=== PATIENT | female | born 1990 | race American Indian/Alaskan Native ===

== ENCOUNTER 2019-03-09 17:58 | Emergency (ER) | payer MEDICAID ==
[2019-03-09 20:07] VITALS: BP 147/94
[2019-03-09 21:03] LABS: Hematocrit 44.5 % (30.3-42.9); Hemoglobin 14.5 gm/dl (10.1-14.3); Mean Corpuscular HGB Conc 33 % (30-34); Mean Corpuscular Volume 84 fl (79-97); Platelet Count 280 K/mm3 (140-440); Red Blood Count 5.28 M/mm3 (3.65-5.03); Red Cell Distribution Width 15.1 % (13.2-15.2)
[2019-03-09 21:22] LABS: BUN/Creatinine Ratio 15; Blood Urea Nitrogen 9 mg/dL (7-17); Calcium 9.9 mg/dL (8.4-10.2); Hemolysis Index 3
[2019-03-09 22:12] LABS: Bacteria,Urine 1+ /HPF (Negative); Bilirubin,Urine NEG (Negative); Blood,Urine NEG (Negative); Color,Urine Yellow (Yellow); Mucus,Urine FEW /HPF; Protein,Urine <15 mg/dL mg/dL (Negative); Urobilinogen,Urine < 2.0 mg/dL (<2.0)
[2019-03-09 22:14] LABS: HCG Qualitative,Urine Negative (Negative)
--- NOTE | 2019-03-09 23:04 | XRay Report ---
PROCEDURE: XR CHEST ROUTINE 2V TECHNIQUE: PA and lateral chest radiographs were obtained. HISTORY: cough, chest pain COMPARISONS: None. FINDINGS: Heart: Normal. Mediastinum/Vessels: Normal. Lungs/Pleural space: Normal. Bony thorax: No acute osseous abnormality. IMPRESSION: Normal examination. This document is electronically signed by Ran Schofield MD., March 09 2019 11:02:59 PM ET
[2019-03-09] MEDS ORDERED: IBUPROFEN PO ONE (23:41)
[2019-03-09] MEDS ORDERED: ATROVENT IH ONE (23:46)
[2019-03-09] MEDS ORDERED: DECADRON IM ONE (23:46)
[2019-03-09] MEDS ORDERED: PROVENTIL IH ONE (23:46)
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
== END 2019-03-10 00:12 | disposition home or self-care (01) ==
LOC: ED 17:58
DX: S39.012A Strain of muscle, fascia and tendon of lower back, initial encounter (principal); J45.901 Unspecified asthma with (acute) exacerbation; F12.10 Cannabis abuse, uncomplicated; V49.49XA Driver injured in collision with other motor vehicles in traffic accident, initial encounter; Y93.89 Activity, other specified; Y92.410 Unspecified street and highway as the place of occurrence of the external cause; Y99.8 Other external cause status
CPT/HCPCS: 36415; 71046; 80048; 81001; 81025; 84484; 85027; 93005; 93010; 94644; 96372; 99284; J1100

== ENCOUNTER 2020-02-16 13:47 | Emergency (ER) | payer MEDICAID ==
--- NOTE | 2020-02-16 14:06 | Event Note ---
ED Screening Note ED Screening Note: [employer] CONCERNED FOR COVID HX ASTHMA RASPY BILATERAL LUNGS- XRAY RO PNA NO FEVER OR CHILLS POS SOB AMBULATORY SAT NORMAL MILD HR INC HTN DENIES C/E/D This initial assessment/diagnostic orders/clinical plan/treatment(s) is/are subject to change based on patients health status, clinical progression and re- assessment by fellow clinical providers in the ED. Further treatment and workup at subsequent clinical providers discretion. Patient/guardian urged not to elope from the ED as their condition may be serious if not clinically assessed and managed. Initial orders include: XRAY RAPID FLU ACC EVAL
[2020-02-16 14:14] VITALS: BP 152/112
--- NOTE | 2020-02-16 14:30 | XRay Report ---
CHEST 2 VIEWS INDICATION / CLINICAL INFORMATION: Shortness of breath. COMPARISON: Chest x-ray on 03/09/2019. FINDINGS: SUPPORT DEVICES: None. HEART / MEDIASTINUM: No significant abnormality. LUNGS / PLEURA: No significant pulmonary or pleural abnormality. No pneumothorax. ADDITIONAL FINDINGS: No significant additional findings. IMPRESSION: 1. No acute findings. Signer Name: Jalil Pedersen MD Signed: 02/16/2020 2:25 PM Workstation Name: [id number]
[2020-02-16] MEDS ORDERED: IPRATROPIUM 0.02% NEBU 2.5 ML IH ONE (14:36)
[2020-02-16] MEDS ORDERED: DEXAMETHASONE 4 MG TAB PO ONE (14:36)
[2020-02-16] MEDS ORDERED: ALBUTEROL 2.5 MG/3 ML NEBU IH ONE ×2 (14:36→15:53)
--- NOTE | 2020-02-16 14:41 | Emergency Department Report ---
ED Asthma HPI - General Chief Complaint: Dyspnea/Respdistress Stated Complaint: SOB Time Seen by Provider: 02/16/20 14:02 Source: patient Mode of arrival: Ambulatory Limitations: No Limitations - History of Present Illness Initial Comments: 30-year-old -[place] female with a past medical history of asthma presents to the emergency room for shortness of breath for the last 2 days. Patient reports she has had some cough. Patient denies any fever or chills no recent travels no nausea no vomiting no sore throat. Patient denies any past medical history except asthma. Patient reports that she has no prescription or inhalers. Last menstrual period was 01/26/2020. MD Complaint: "asthma attack" Onset/Timin -: days(s) - Related Data Previous Rx's Medication Instructions Recorded Last Taken Type ALBUTEROL Inhaler(NF) [VENTOLIN 1 puff IH Q4-6H PRN #1 inha 10/05/18 Unknown Rx Inhaler(NF)] Prednisone [predniSONE 10 mg 10 mg PO .TAPER #1 tab.ds.pk 10/05/18 Unknown Rx (6-Day Pack, 21 Tabs)] ALBUTEROL Inhaler(NF) [VENTOLIN 2 puff IH Q4-6H PRN #1 inha 03/10/19 Unknown Rx Inhaler(NF)] Cyclobenzaprine [Flexeril] 10 mg PO QHS PRN #10 tablet 03/10/19 Unknown Rx Ibuprofen [Motrin] 600 mg PO Q8H PRN #20 tablet 03/10/19 Unknown Rx Prednisone [predniSONE 10 mg 10 mg PO .TAPER #1 tab.ds.pk 03/10/19 Unknown Rx (6-Day Pack, 21 Tabs)] Ibuprofen [Motrin 800 MG tab] 800 mg PO Q8HR PRN #20 tablet 03/27/19 Unknown Rx Albuterol Sulfate [Proventil Hfa] 6.7 gm IH QID PRN #1 hfa.aer.ad 02/16/20 Unknown Rx Prednisone [predniSONE 5 mg (6-Day 5 mg PO .TAPER #1 tab.ds.pk 02/16/20 Unknown Rx Pack, 21 Tabs)] Allergies Allergy/AdvReac Type Severity Reaction Status Date / Time No Known Allergies Allergy Verified 10/05/18 22:22 ED Review of Systems ROS: Stated complaint: SOB Other details as noted in HPI ED Past Medical Hx - Past Medical History Hx Asthma: Yes - Social History Smoking Status: Never Smoker Substance Use Type: None - Medications Home Medications: Home Medications Medication Instructions Recorded Confirmed Last Taken Type ALBUTEROL Inhaler(NF) [VENTOLIN 1 puff IH Q4-6H PRN #1 inha 10/05/18 Unknown Rx Inhaler(NF)] Prednisone [predniSONE 10 mg 10 mg PO .TAPER #1 tab.ds.pk 10/05/18 Unknown Rx (6-Day Pack, 21 Tabs)] ALBUTEROL Inhaler(NF) [VENTOLIN 2 puff IH Q4-6H PRN #1 inha 03/10/19 Unknown Rx Inhaler(NF)] Cyclobenzaprine [Flexeril] 10 mg PO QHS PRN #10 tablet 03/10/19 Unknown Rx Ibuprofen [Motrin] 600 mg PO Q8H PRN #20 tablet 03/10/19 Unknown Rx Prednisone [predniSONE 10 mg 10 mg PO .TAPER #1 tab.ds.pk 03/10/19 Unknown Rx (6-Day Pack, 21 Tabs)] Ibuprofen [Motrin 800 MG tab] 800 mg PO Q8HR PRN #20 tablet 03/27/19 Unknown Rx Albuterol Sulfate [Proventil Hfa] 6.7 gm IH QID PRN #1 hfa.aer.ad 02/16/20 Unknown Rx Prednisone [predniSONE 5 mg (6-Day 5 mg PO .TAPER #1 tab.ds.pk 02/16/20 Unknown Rx Pack, 21 Tabs)] ED Physical Exam - General Limitations: No Limitations General appearance: alert, in no apparent distress - Head Head exam: Present: atraumatic, normocephalic - Eye Eye exam: Present: normal appearance - ENT ENT exam: Present: mucous membranes moist - Neck Neck exam: Present: normal inspection, full ROM - Respiratory Respiratory exam: Present: rhonchi, prolonged expiratory - Cardiovascular Cardiovascular Exam: Present: bradycardia (mild) - GI/Abdominal GI/Abdominal exam: Present: soft, normal bowel sounds - Back Exam Back exam: Present: normal inspection - Neurological Exam Neurological exam: Present: alert, oriented X3, normal gait - Psychiatric Psychiatric exam: Present: normal affect, normal mood - Skin Skin exam: Present: warm, dry, intact, normal color. Absent: rash ED Course Vital Signs 02/16/20 13:55 Temperature 98.5 F Pulse Rate 102 H Respiratory 18 Rate Blood Pressure 152/112 O2 Sat by Pulse 95 Oximetry - Reevaluation(s) Reevaluation #1: 02/16/20 15:54 Reassessment of patient she reports she feels somewhat better but still can hear herself wheeze. Patient does have a expiratory wheeze. Will authorize 5 mL's albuterol neb treatment. ED Medical Decision Making - Medical Decision Making 30-year-old -[place] female with a past medical history of asthma presents to the emergency room for shortness of breath for the last 2 days. Patient reports she has had some cough. Patient denies any fever or chills no recent travels no nausea no vomiting no sore throat. Patient denies any past medical history except asthma. Patient reports that she has no prescription or inhalers. Last menstrual period was 01/26/2020. Chest x-ray is negative for any acute findings. Patient will be given albuterol 5 mg Atrovent 0.5 and dexamethasone p.o. 4 mg. Patient will be discharged home with an albuterol inhaler and a prednisone pack and to follow-up with a community provider. Critical care attestation.: If time is entered above; I have spent that time in minutes in the direct care of this critically ill patient, excluding procedure time. ED Disposition Clinical Impression: Asthma Disposition: DC-01 TO HOME OR SELFCARE Is pt being admited?: No Does the pt Need Aspirin: No Condition: Stable Instructions: Asthma (ED), Reactive Airways Disease (ED) Additional Instructions: Please complete prednisone package as prescribed. Use your inhaler as needed for shortness of breath and cough. Follow-up with a community provider if you continue to have asthma related complaints. Prescriptions: Prednisone [predniSONE 5 mg (6-Day Pack, 21 Tabs)] 5 mg PO .TAPER #1 tab.ds.pk Albuterol Sulfate [Proventil Hfa] 6.7 gm IH QID PRN #1 hfa.aer.ad PRN Reason: Shortness Of Breath Referrals: PRIMARY MD ESTHER [Primary Care Provider] - 3-5 Days JOSÉ MANUEL EL MD [Staff Physician] - 3-5 Days [facility] [Provider Group] - 3-5 Days Forms: Work/School Release Form(ED)
== END 2020-02-16 16:45 | disposition home or self-care (01) ==
LOC: ED 13:47
DX: J45.909 Unspecified asthma, uncomplicated (principal)
CPT/HCPCS: 71046; 99283; J8540

== ENCOUNTER 2020-02-29 00:12 | Emergency (ER) | payer MEDICAID ==
[2020-02-29 00:21] VITALS: BP 150/102
[2020-02-29 01:30] LABS: Basophils % (Auto) 0.5 % (0.0-1.8); Eosinophils # (Auto) 0.9 K/mm3 (0.0-0.4); Hemoglobin 15.3 gm/dl (10.1-14.3); Lymphocytes # (Auto) 2.1 K/mm3 (1.2-5.4); Lymphocytes % (Auto) 26.4 % (13.4-35.0); Mean Corpuscular HGB Conc 33 % (30-34); Mean Corpuscular Volume 85 fl (79-97); Monocytes # (Auto) 0.6 K/mm3 (0.0-0.8); Monocytes % (Auto) 6.9 % (0.0-7.3); Platelet Count 330 K/mm3 (140-440); Red Blood Count 5.53 M/mm3 (3.65-5.03); Red Cell Distribution Width 13.4 % (13.2-15.2)
[2020-02-29 01:42] LABS: BUN/Creatinine Ratio 12; Blood Urea Nitrogen 7 mg/dL (7-17); Calcium 9.3 mg/dL (8.4-10.2); Hemolysis Index 8
[2020-02-29] MEDS ORDERED: ACETAMINOPHEN 500 MG TAB PO ONE (01:58)
[2020-02-29] MEDS ORDERED: methylPREDNISolone Sod Succinate 125 MG/2 ML INJ IM ONE (01:58)
[2020-02-29] MEDS ORDERED: IPRATROPIUM/ALBUTEROL SULFATE 3 ML AMPUL.NEB IH ONE (01:58)
[2020-02-29] MEDS ORDERED: ALBUTEROL 2.5 MG/3 ML NEBU IH ONE (05:22)
--- NOTE | 2020-02-29 06:03 | Emergency Department Report ---
ED Shortness of Breath HPI - General Chief Complaint: Dyspnea/Respdistress Stated Complaint: DIFFICULTY IN BREATHING Source: patient Mode of arrival: Ambulatory Limitations: No Limitations - History of Present Illness Initial Comments: Patient is a 30-year-old -Romanian female with a history of asthma and who is not on any medications at home presents to the ED with complaint of acute onset persistent nasal and sinus congestion, frontal sinus pressure, headache, sore throat, pleuritic chest pain, persistent dry cough and wheezing and shortness of breath for the last 1 week, worse in the last 2 days especially in the last 6 hours. Patient states that the pleuritic pain gets worse at night when she lays down to sleep with persistent dry cough. Patient denies dizz iness, fever, chills, abdominal pain, nausea, vomiting, sore throat, diarrhea, dysuria, urinary frequency and urgency, syncope, change in vision or fall, heavy lifting and traumatic injury. MD Complaint: shortness of breath, cough, chest pain, pain with inspiration, "asthma attack" -: Sudden, week(s) (1) Severity: severe Pain Scale: 7 Quality: aching, sharp, other (Pleuritic) Consistency: intermittent Improves With: nothing Worsens With: movement, coughing, inspiration Known History Of: asthma Context: recent URI, anxiety Associated Symptoms: denies other symptoms, chest pain (Pleuritic), pain with inspiration, cough Treatments Prior to Arrival: none - Related Data Home Oxygen Therapy: No Previous Rx's Medication Instructions Recorded Last Taken Type ALBUTEROL Inhaler(NF) [VENTOLIN 1 puff IH Q4-6H PRN #1 inha 10/05/18 Unknown Rx Inhaler(NF)] Prednisone [predniSONE 10 mg 10 mg PO .TAPER #1 tab.ds.pk 10/05/18 Unknown Rx (6-Day Pack, 21 Tabs)] ALBUTEROL Inhaler(NF) [VENTOLIN 2 puff IH Q4-6H PRN #1 inha 03/10/19 Unknown Rx Inhaler(NF)] Cyclobenzaprine [Flexeril] 10 mg PO QHS PRN #10 tablet 03/10/19 Unknown Rx Prednisone [predniSONE 10 mg 10 mg PO .TAPER #1 tab.ds.pk 03/10/19 Unknown Rx (6-Day Pack, 21 Tabs)] Ibuprofen [Motrin 800 MG tab] 800 mg PO Q8HR PRN #20 tablet 03/27/19 Unknown Rx Prednisone [predniSONE 5 mg (6-Day 5 mg PO .TAPER #1 tab.ds.pk 02/16/20 Unknown Rx Pack, 21 Tabs)] Albuterol Sulfate [Proventil Hfa] 1 - 2 puff IH Q6H PRN #1 hfa.aer.ad 02/29/20 Unknown Rx Benzonatate [Tessalon Perles] 100 mg PO Q8HR #30 capsule 02/29/20 Unknown Rx Cetirizine HCl [Zyrtec 10mg tab] 10 mg PO DAILY #30 tablet 02/29/20 Unknown Rx Doxycycline Hyclate 100 mg PO Q12H #20 tablet.dr 02/29/20 Unknown Rx Ibuprofen [Motrin 600 MG tab] 600 mg PO Q8H PRN #20 tablet 02/29/20 Unknown Rx Prednisone [predniSONE 10 mg 10 mg PO .TAPER #21 tab.ds.pk 02/29/20 Unknown Rx (6-Day Pack, 21 Tabs)] Allergies Allergy/AdvReac Type Severity Reaction Status Date / Time No Known Allergies Allergy Verified 10/05/18 22:22 ED Review of Systems ROS: Stated complaint: DIFFICULTY IN BREATHING Other details as noted in HPI Constitutional: denies: chills, fever Eyes: denies: eye pain, eye discharge, vision change ENT: congestion. denies: ear pain, throat pain Respiratory: cough, shortness of breath, wheezing Cardiovascular: chest pain (Pleuritic). denies: palpitations Endocrine: no symptoms reported Gastrointestinal: denies: abdominal pain, nausea, vomiting, diarrhea Genitourinary: denies: urgency, dysuria, discharge Musculoskeletal: denies: back pain, joint swelling, arthralgia Skin: denies: rash, lesions Neurological: headache. denies: weakness, paresthesias Psychiatric: denies: anxiety, depression Hematological/Lymphatic: denies: easy bleeding, easy bruising ED Past Medical Hx - Past Medical History Previous Medical History?: Yes Hx Asthma: Yes - Surgical History Past Surgical History?: No - Social History Smoking Status: Former Smoker Substance Use Type: Alcohol - Medications Home Medications: Home Medications Medication Instructions Recorded Confirmed Last Taken Type ALBUTEROL Inhaler(NF) [VENTOLIN 1 puff IH Q4-6H PRN #1 inha 10/05/18 Unknown Rx Inhaler(NF)] Prednisone [predniSONE 10 mg 10 mg PO .TAPER #1 tab.ds.pk 10/05/18 Unknown Rx (6-Day Pack, 21 Tabs)] ALBUTEROL Inhaler(NF) [VENTOLIN 2 puff IH Q4-6H PRN #1 inha 03/10/19 Unknown Rx Inhaler(NF)] Cyclobenzaprine [Flexeril] 10 mg PO QHS PRN #10 tablet 03/10/19 Unknown Rx Prednisone [predniSONE 10 mg 10 mg PO .TAPER #1 tab.ds.pk 03/10/19 Unknown Rx (6-Day Pack, 21 Tabs)] Ibuprofen [Motrin 800 MG tab] 800 mg PO Q8HR PRN #20 tablet 03/27/19 Unknown Rx Prednisone [predniSONE 5 mg (6-Day 5 mg PO .TAPER #1 tab.ds.pk 02/16/20 Unknown Rx Pack, 21 Tabs)] Albuterol Sulfate [Proventil Hfa] 1 - 2 puff IH Q6H PRN #1 hfa.aer.ad 02/29/20 Unknown Rx Benzonatate [Tessalon Perles] 100 mg PO Q8HR #30 capsule 02/29/20 Unknown Rx Cetirizine HCl [Zyrtec 10mg tab] 10 mg PO DAILY #30 tablet 02/29/20 Unknown Rx Doxycycline Hyclate 100 mg PO Q12H #20 tablet.dr 02/29/20 Unknown Rx Ibuprofen [Motrin 600 MG tab] 600 mg PO Q8H PRN #20 tablet 02/29/20 Unknown Rx Prednisone [predniSONE 10 mg 10 mg PO .TAPER #21 tab.ds.pk 02/29/20 Unknown Rx (6-Day Pack, 21 Tabs)] ED Physical Exam - General Limitations: No Limitations General appearance: alert, in no apparent distress - Head Head exam: Present: atraumatic, normocephalic, normal inspection - Eye Eye exam: Present: normal appearance, PERRL, EOMI Pupils: Present: normal accommodation - ENT ENT exam: Present: normal orophraynx, mucous membranes moist, TM's normal bilaterally, normal external ear exam, other (Grossly congested nasal passages; palpable frontal sinus tenderness) - Neck Neck exam: Present: normal inspection, full ROM - Respiratory Respiratory exam: Present: wheezes (Mildly diffuse coarse wheezes throughout; reproducible palpable chest wall tenderness), chest wall tenderness. Absent: respiratory distress, rales, rhonchi, accessory muscle use, decreased breath sounds - Cardiovascular Cardiovascular Exam: Present: normal rhythm, tachycardia, normal heart sounds. Absent: systolic murmur, diastolic murmur, rubs, gallop - GI/Abdominal GI/Abdominal exam: Present: soft, normal bowel sounds. Absent: tenderness, guarding, rebound, hyperactive bowel sounds, hypoactive bowel sounds, organomegaly - Extremities Exam Extremities exam: Present: normal inspection, full ROM, normal capillary refill - Back Exam Back exam: Present: normal inspection, full ROM. Absent: tenderness, CVA tenderness (R), CVA tenderness (L), muscle spasm, paraspinal tenderness, vertebral tenderness - Neurological Exam Neurological exam: Present: alert, oriented X3, CN II-XII intact, normal gait, reflexes normal - Psychiatric Psychiatric exam: Present: normal affect, normal mood - Skin Skin exam: Present: warm, dry, intact, normal color. Absent: rash ED Course Vital Signs 02/29/20 02/29/20 00:20 06:18 Temperature 98.5 F 98 F Pulse Rate 108 H 96 H Respiratory 18 18 Rate Blood Pressure 150/102 [Right] O2 Sat by Pulse 96 99 Oximetry ED Medical Decision Making - Lab Data Result diagrams: 02/29/20 00:59 02/29/20 00:59 - EKG Data EKG shows normal: sinus rhythm Rate: tachycardia - EKG Data 02/29/20 06:10 EKG shows sinus tach cardia with a ventricular rate of 102 bpm, and no ST or T wave abnormalities. - Radiology Data Radiology results: report reviewed, image reviewed Chest x-ray shows no acute cardiopulmonary abnormalities or pneumonitis. - Medical Decision Making This is a 30-year-old -Romanian female with a history of asthma and who is not on any medications at home presents to the ED with complaint of acute onset persistent nasal and sinus congestion, frontal sinus pressure, headache, sore throat, pleuritic chest pain, persistent dry cough and wheezing and shortness of breath for the last 1 week, worse in the last 2 days especially in the last 6 hours. Patient states that the pleuritic pain gets worse at night when she lays down to sleep with persistent dry cough. In the ED, patient is alert and oriented x3 and is not in distress but tachycardic in triage. EKG shows sinus tachycardia with a ventricular rate of [address] or T wave abnormalities. Chest x-ray shows no acute cardiopulmonary abnormalities or p neumonitis. Patient received initially DuoNeb treatment with Solu-Medrol injection, and subsequently received another round of albuterol nebulizer treatment in the ED. On reevaluation, patient's wheezing resolved and pain was well-controlled with medications. Patient was discharged home on medications based on the physical exam findings of acute sinusitis, acute bronchitis and acute upper respiratory infection. Patient was advised to follow-up with her primary care physician in 7 to 10 days for reevaluation or return to the ED immediately if symptoms get worse. - Differential Diagnosis Pneumonia; Asthma; Bronchitis; Sinusitis; URI; Pleurisy Critical care attestation.: If time is entered above; I have spent that time in minutes in the direct care of this critically ill patient, excluding procedure time. ED Disposition Clinical Impression: Acute asthmatic bronchitis, Acute upper respiratory infection, Pleuritic chest pain Acute frontal sinusitis Qualifiers: Recurrence: non-recurrent Qualified Code(s): J01.10 - Acute frontal sinusitis, unspecified Disposition: DC-01 TO HOME OR SELFCARE Is pt being admited?: No Does the pt Need Aspirin: No Condition: Stable Instructions: Asthma (ED), Costochondritis (ED), Upper Respiratory Infection (ED), Acute Bronchitis (ED), Acute Bacterial Rhinosinusitis (ED) Additional Instructions: All lab test results are all nonactionable and unremarkable. Chest x-ray shows no acute cardiopulmonary abnormalities or pneumonitis. Therefore take medications as advised with food, drink plenty of fluids and follow-up with your primary care physician in 7 to 10 days for reevaluation. Return to the ED immediately if symptoms get worse. Prescriptions: Doxycycline Hyclate 100 mg PO Q12H #20 tablet. Ibuprofen [Motrin 600 MG tab] 600 mg PO Q8H PRN #20 tablet PRN Reason: Pain Prednisone [predniSONE 10 mg (6-Day Pack, 21 Tabs)] 10 mg PO .TAPER #21 tab.ds.pk Albuterol Sulfate [Proventil Hfa] 1 - 2 puff IH Q6H PRN #1 hfa.aer.ad PRN Reason: Shortness Of Breath Benzonatate [Tessalon Perles] 100 mg PO Q8HR #30 capsule Cetirizine HCl [Zyrtec 10mg tab] 10 mg PO DAILY #30 tablet Referrals: [facility] [Provider Group] - 7-10 days Time of Disposition: 06:12 Print Language: [place] CITIZEN
--- NOTE | 2020-02-29 06:38 | XRay Report ---
CHEST 1 VIEW 5:51 AM INDICATION / CLINICAL INFORMATION: Chest Pain. COMPARISON: 02/16/20 FINDINGS: SUPPORT DEVICES: None. HEART / MEDIASTINUM: No significant abnormality. LUNGS / PLEURA: No significant pulmonary or pleural abnormality. No pneumothorax. ADDITIONAL FINDINGS: No significant additional findings. IMPRESSION: 1. No acute findings. No change. Signer Name: Makayla Zaragoza MD Signed: 02/29/2020 6:34 AM Workstation Name: [id number]
== END 2020-02-29 06:27 | disposition home or self-care (01) ==
LOC: ED 00:12
DX: J06.9 Acute upper respiratory infection, unspecified (principal); J01.10 Acute frontal sinusitis, unspecified; J45.909 Unspecified asthma, uncomplicated; R07.81 Pleurodynia; Z79.899 Other long term (current) drug therapy; Z87.891 Personal history of nicotine dependence
CPT/HCPCS: 36415; 71045; 80048; 84484; 84703; 85025; 85379; 93005; 93010; 94640; 96372; 99284; J2930

== ENCOUNTER 2020-11-22 15:01 | Emergency (ER) | payer MEDICAID ==
--- NOTE | 2020-11-22 17:34 | Event Note ---
ED Screening Note Date of service: 11/22/20 Time: 17:33 ED Screening Note: 30 weeks , complains of headache x2 days unrelieved with Tylenol Denies abdominal pain or vaginal bleeding This initial assessment/diagnostic orders/clinical plan/treatment(s) is/are subject to change based on patients health status, clinical progression and re- assessment by fellow clinical providers in the ED. Further treatment and workup at subsequent clinical providers discretion. Patient/guardian urged not to elope from the ED as their condition may be serious if not clinically assessed and managed. Initial orders include: Labs <JON SAUER - Last Filed: 11/22/20 17:33> ED Screening Note: This initial assessment/diagnostic orders/clinical plan/treatment(s) is/are subject to change based on patients health status, clinical progression and re-assessment by fellow clinical providers in the ED. Further treatment and workup at subsequent clinical providers discretion. Patient/guardian urged not to elope from the ED as their condition may be serious if not clinically assessed and managed. Initial orders include: <JORDIN JONES - Last Filed: 11/22/20 17:56>
[2020-11-22 17:57] LABS: Basophils % (Auto) 0.4 % (0.0-1.8); Eosinophils # (Auto) 0.3 K/mm3 (0.0-0.4); Eosinophils % (Auto) 3.7 % (0.0-4.3); Hematocrit 40.7 % (30.3-42.9); Hemoglobin 13.7 gm/dl (10.1-14.3); Lymphocytes # (Auto) 1.4 K/mm3 (1.2-5.4); Lymphocytes % (Auto) 20.3 % (13.4-35.0); Mean Corpuscular HGB Conc 34 % (30-34); Mean Corpuscular Volume 84 fl (79-97); Monocytes # (Auto) 0.6 K/mm3 (0.0-0.8); Monocytes % (Auto) 8.2 % (0.0-7.3); Platelet Count 233 K/mm3 (140-440); Red Blood Count 4.84 M/mm3 (3.65-5.03); Red Cell Distribution Width 12.7 % (13.2-15.2)
[2020-11-22 17:59] LABS: Bacteria,Urine 1+ /HPF (Negative); Bilirubin,Urine NEG (Negative); Blood,Urine SM (Negative); Color,Urine Yellow (Yellow); Mucus,Urine 3+ /HPF; Protein,Urine <15 mg/dL mg/dL (Negative); Urobilinogen,Urine < 2.0 mg/dL (<2.0)
[2020-11-22 18:19] LABS: Alanine Aminotransferase 15 units/L (7-56); Albumin 3.7 g/dL (3.9-5); Blood Urea Nitrogen 3 mg/dL (7-17); Calcium 9.2 mg/dL (8.4-10.2); Hemolysis Index 5
[2020-11-22 18:21] LABS: BUN/Creatinine Ratio 6
[2020-11-22] MEDS ORDERED: SODIUM CHLORIDE 0.9% 1000 ML 1,000 ML IV ONE (21:56)
[2020-11-22] MEDS ORDERED: ACETAMINOPHEN 325 MG TAB PO ONE (21:56)
--- NOTE | 2020-11-22 22:03 | Emergency Department Report ---
ED Headache HPI - General Chief Complaint: Headache Stated Complaint: (19 WKS PREG) HEADACHE Time Seen by Provider: 11/22/20 21:43 - History of Present Illness Initial Comments: 30-year-old female, , currently 19 weeks , presents to ED with complaint of headache. Patient states she awoke this morning with a bitemporal headache. She reports some associated dizziness. Patient denies any nausea, vomiting, fever, cough, shortness of breath, loss of smell or taste. She also denies any abdominal bleeding. Patient reports she has been having some nasal congestion. Patient took Tylenol at around 11 AM without relief. Denies any history of chronic headaches and migraines. She denies any associated weakness or numbness. Patient reports she has had a decreased appetite over the last couple of days and has not been eating as much as usual. Patient denies any head injury. OB: Dr Barron orr/ [facility] Timing/Duration: other (since this morning) Quality: moderate Recent Head Trauma: no recent headache/trauma Associated Symptoms: nasal congestion. denies: fever/chills, nausea/vomiting, numbness in legs/feet, stiff neck, vision changes Allergies/Adverse Reactions: Allergies No Known Allergies Allergy (Verified 10/05/18 22:22) Home Medications: Ambulatory Orders ALBUTEROL Inhaler(NF) [VENTOLIN Inhaler(NF)] 1 puff IH Q4-6H PRN #1 inha Prednisone [predniSONE 10 mg (6-Day Pack, 21 Tabs)] 10 mg PO .TAPER #1 tab.ds.pk 10/05/18 ALBUTEROL Inhaler(NF) [VENTOLIN Inhaler(NF)] 2 puff IH Q4-6H PRN #1 inha 03/10/19 Cyclobenzaprine [Flexeril] 10 mg PO QHS PRN #10 tablet 03/10/19 Prednisone [predniSONE 10 mg (6-Day Pack, 21 Tabs)] 10 mg PO .TAPER #1 tab.ds.pk 03/10/19 Ibuprofen [Motrin 800 MG tab] 800 mg PO Q8HR PRN #20 tablet 03/27/19 Prednisone [predniSONE 5 mg (6-Day Pack, 21 Tabs)] 5 mg PO .TAPER #1 tab.ds.pk 02/16/20 Albuterol Sulfate [Proventil Hfa] 1 - 2 puff IH Q6H PRN #1 hfa.aer.ad 02/29/20 Benzonatate [Tessalon Perles] 100 mg PO Q8HR #30 capsule 02/29/20 Cetirizine HCl [Zyrtec 10mg tab] 10 mg PO DAILY #30 tablet 02/29/20 Doxycycline Hyclate 100 mg PO Q12H #20 tablet. 02/29/20 Ibuprofen [Motrin 600 MG tab] 600 mg PO Q8H PRN #20 tablet 02/29/20 Prednisone [predniSONE 10 mg (6-Day Pack, 21 Tabs)] 10 mg PO .TAPER #21 tab.ds.pk 02/29/20 ED Review of Systems ROS: Stated complaint: (19 WKS PREG) HEADACHE Other details as noted in HPI Comment: All other systems reviewed and negative Constitutional: denies: chills, fever ENT: congestion Respiratory: denies: cough, shortness of breath Gastrointestinal: denies: nausea, vomiting Neurological: headache. denies: weakness, numbness ED Past Medical Hx - Past Medical History Previous Medical History?: Yes Hx Asthma: Yes - Social History Smoking Status: Never Smoker Substance Use Type: None - Medications Home Medications: Home Medications Medication Instructions Recorded Confirmed Last Taken Type ALBUTEROL Inhaler(NF) [VENTOLIN 1 puff IH Q4-6H PRN #1 inha 10/05/18 Unknown Rx Inhaler(NF)] Prednisone [predniSONE 10 mg 10 mg PO .TAPER #1 tab.ds.pk 10/05/18 Unknown Rx (6-Day Pack, 21 Tabs)] ALBUTEROL Inhaler(NF) [VENTOLIN 2 puff IH Q4-6H PRN #1 inha 03/10/19 Unknown Rx Inhaler(NF)] Cyclobenzaprine [Flexeril] 10 mg PO QHS PRN #10 tablet 03/10/19 Unknown Rx Prednisone [predniSONE 10 mg 10 mg PO .TAPER #1 tab.ds.pk 03/10/19 Unknown Rx (6-Day Pack, 21 Tabs)] Ibuprofen [Motrin 800 MG tab] 800 mg PO Q8HR PRN #20 tablet 03/27/19 Unknown Rx Prednisone [predniSONE 5 mg (6-Day 5 mg PO .TAPER #1 tab.ds.pk 02/16/20 Unknown Rx Pack, 21 Tabs)] Albuterol Sulfate [Proventil Hfa] 1 - 2 puff IH Q6H PRN #1 hfa.aer.ad 02/29/20 Unknown Rx Benzonatate [Tessalon Perles] 100 mg PO Q8HR #30 capsule 02/29/20 Unknown Rx Cetirizine HCl [Zyrtec 10mg tab] 10 mg PO DAILY #30 tablet 02/29/20 Unknown Rx Doxycycline Hyclate 100 mg PO Q12H #20 tablet.dr 02/29/20 Unknown Rx Ibuprofen [Motrin 600 MG tab] 600 mg PO Q8H PRN #20 tablet 02/29/20 Unknown Rx Prednisone [predniSONE 10 mg 10 mg PO .TAPER #21 tab.ds.pk 02/29/20 Unknown Rx (6-Day Pack, 21 Tabs)] ED Physical Exam - General Limitations: No Limitations General appearance: alert, in no apparent distress - Head Head exam: Present: atraumatic, normocephalic - Eye Eye exam: Present: normal appearance, PERRL, EOMI - ENT ENT exam: Present: mucous membranes moist - Neck Neck exam: Present: normal inspection, full ROM. Absent: meningismus - Respiratory Respiratory exam: Present: normal lung sounds bilaterally. Absent: respiratory distress - Cardiovascular Cardiovascular Exam: Present: normal rhythm, tachycardia - GI/Abdominal GI/Abdominal exam: Present: soft. Absent: distended, tenderness - Extremities Exam Extremities exam: Present: normal inspection - Neurological Exam Neurological exam: Present: alert, oriented X3, CN II-XII intact. Absent: motor sensory deficit - Psychiatric Psychiatric exam: Present: normal affect, normal mood - Skin Skin exam: Present: warm, dry, intact, normal color ED Course Vital Signs 11/22/20 11/22/20 11/22/20 16:59 21:09 22:58 Temperature 98.1 F 98.6 F Pulse Rate 109 H 102 H Respiratory 18 16 16 Rate Blood Pressure 127/93 136/92 Blood Pressure [Right] O2 Sat by Pulse 98 98 Oximetry 11/22/20 23:53 Temperature 98.1 F Pulse Rate 88 Respiratory 20 Rate Blood Pressure Blood Pressure 118/80 [Right] O2 Sat by Pulse 100 Oximetry ED Medical Decision Making - Lab Data Result diagrams: 11/22/20 17:40 11/22/20 17:40 - Medical Decision Making 30-year-old female, 19 weeks , presents to ED with headache, dizziness, nasal congestion. Patient reports headache located in bitemporal area. She denies any fever, patient is afebrile here in the ED. No neuro deficits on e xam. Labs are unremarkable. Patient reports decreased appetite and p.o. intake over the last couple of days. Symptoms possibly due to some degree of dehydration. 1 L bolus normal saline given along with Tylenol. Patient reports she is feeling much better at this time. States she is ready to ED and feels ready for discharge home. I offered patient a snack, however she wants to wait until she gets home. Preeclampsia is unlikely as patient is only 19 weeks . Initial blood pressure had diastolic slightly over 90, however repeat vital signs following IV fluids and resolution of headache show normal blood pressure. Return precautions given. Patient also advised to obtain outpatient C OVID-19 testing for safe measure. - Differential Diagnosis dehydration, Critical care attestation.: If time is entered above; I have spent that time in minutes in the direct care of this critically ill patient, excluding procedure time. ED Disposition Clinical Impression: Acute headache Disposition: DC-01 TO HOME OR SELFCARE Is pt being admited?: No Condition: Stable Instructions: General Headache Without Cause, Tension Headache, Adult Additional Instructions: Recommend outpatient COVID-19 testing due to symptoms. Referrals: PRIMARY CARE, [Primary Care Provider] - 3-5 Days Time of Disposition: 23:46
[2020-11-22 23:59] VITALS: BP 118/80
== END 2020-11-23 00:10 | disposition home or self-care (01) ==
LOC: ED 15:01
DX: O26.892 Other specified pregnancy related conditions, second trimester (principal); O99.512 Diseases of the respiratory system complicating pregnancy, second trimester; R51.9 Headache, unspecified; J45.909 Unspecified asthma, uncomplicated; Z3A.19 19 weeks gestation of pregnancy; Z79.899 Other long term (current) drug therapy
CPT/HCPCS: 36415; 80053; 81001; 85025; 96360; 99283; J7030

== ENCOUNTER 2021-11-01 19:54 | Emergency (ER) | payer MEDICAID, OTHER ==
[2021-11-01] MEDS ORDERED: cloNIDine 0.1 MG TAB PO ONE (21:11)
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
[2021-11-01 21:21] VITALS: BP 162/110
[2021-11-01 21:40] LABS: Basophils % (Auto) 0.5 % (0.0-1.8); Eosinophils # (Auto) 0.3 K/mm3 (0.0-0.4); Eosinophils % (Auto) 6.3 % (0.0-4.3); Hematocrit 40.8 % (30.3-42.9); Hemoglobin 13.2 gm/dl (10.1-14.3); Lymphocytes # (Auto) 2.1 K/mm3 (1.2-5.4); Mean Corpuscular HGB Conc 33 % (30-34); Mean Corpuscular Volume 84 fl (79-97); Monocytes # (Auto) 0.4 K/mm3 (0.0-0.8); Platelet Count 289 K/mm3 (140-440); Red Blood Count 4.84 M/mm3 (3.65-5.03); Red Cell Distribution Width 12.9 % (13.2-15.2)
[2021-11-01 21:57] LABS: Blood Urea Nitrogen 9 mg/dL (7-17); Calcium 9.3 mg/dL (8.4-10.2); Hemolysis Index 22
--- NOTE | 2021-11-01 21:58 | XRay Report ---
Cervical spine, 4 views HISTORY: Pain COMPARISON: FINDINGS: Alignment is normal. Vertebral body heights and disc spaces are maintained. No evidence of fracture or malalignment. Prevertebral soft tissues are within normal limits. Visualized lung apices are clear. IMPRESSION: No acute process. Signer Name: Eugene Mendoza MD Signed: 11/01/2021 9:53 PM Workstation Name: [id number]
[2021-11-01 22:05] LABS: BUN/Creatinine Ratio 18
--- NOTE | 2021-11-01 22:08 | Cat Scan Report ---
CT HEAD WITHOUT CONTRAST INDICATION / CLINICAL INFORMATION: Head injury. TECHNIQUE: All CT scans at this location are performed using CT dose reduction for ALARA by means of automated exposure control. COMPARISON: None available. FINDINGS: BRAIN PARENCHYMA: No acute intracranial hemorrhage. No evidence of recent infarct. No mass effect or midline shift. VENTRICULAR SYSTEM/EXTRA-AXIAL SPACES: Ventricles are normal for age. No extra-axial fluid collection . ORBITS: Normal as visualized. SKELETAL SYSTEM/SOFT TISSUES: Normal bones and soft tissues. PARANASAL SINUSES/MASTOID AIR CELLS: No significant abnormality. ADDITIONAL FINDINGS: None. IMPRESSION: 1. No acute intracranial abnormality. Signer Name: Eugene Mendoza MD Signed: 11/01/2021 10:04 PM Workstation Name: [id number]
== END 2021-11-01 22:40 | disposition home or self-care (01) ==
LOC: ED 19:54
DX: S09.90XA Unspecified injury of head, initial encounter (principal); I10 Essential (primary) hypertension; J45.909 Unspecified asthma, uncomplicated; Z79.899 Other long term (current) drug therapy; V87.7XXA Person injured in collision between other specified motor vehicles (traffic), initial encounter; Y93.89 Activity, other specified; Y92.488 Other paved roadways as the place of occurrence of the external cause; Y99.8 Other external cause status
CPT/HCPCS: 36415; 70450; 72040; 80048; 85025; 99284